=== PATIENT | male | born 1965 | race Caucasian/White ===

== ENCOUNTER 2016-11-03 20:07 | Observation (INO) ==
[2016-11-03] MEDS ORDERED: Ipratropium/Albuterol Neb 3 ML IH ONE (20:33)
[2016-11-03] MEDS ORDERED: methylPREDNISolone 125 MG/2 ML VIAL IV ONE (20:33)
--- NOTE | 2016-11-03 20:33 | Emergency Department Note ---
Disposition Clinical Impression: Chest pain Qualifiers: Chest pain type: unspecified Qualified Code(s): R07.9 - Chest pain, unspecified Dyspnea Qualifiers: Dyspnea type: shortness of breath Qualified Code(s): R06.02 - Shortness of breath COPD (chronic obstructive pulmonary disease) Qualifiers: COPD type: chronic bronchitis Chronic bronchitis type: simple Qualified Code(s) : J41.0 - Simple chronic bronchitis Disposition: Admitted As Inpatient Condition: Good Referrals: Unassigned,Provider [Non-Partnered Physician] - Chest Pain HPI - General Stated Complaint: JOSE Chest Pressure/ tightness Time Seen by Provider: 11/03/16 20:12 Source: patient Mode of arrival: ambulatory Limitations: no limitations Vital Signs Reviewed: Yes Nursing Notes Reviewed: Yes - History of Present Illness Pt complaint: chest pain Onset (ago): hour(s) (3) Duration: constant Onset: during rest Pain Location: substernal Severity scale (1-10): 8 Quality: tightness Pain Radiation: none Improves with: nothing Worsens with: nothing Associated symptoms: Reports: dyspnea Treatments prior to arrival chest pain: none - Related Data Home Medications Medication Instructions Recorded Confirmed Amlodipine Besylate 10 mg PO HS 06/28/16 06/28/16 Aspirin 81 mg PO HS 06/28/16 06/28/16 Budesonide/Formoterol 160/4.5 1 puff IH BIDR 06/28/16 06/28/16 [Symbicort 160/4.5] Cholecalciferol (D-3) [Vitamin D] 5,000 unit PO DAILY 06/28/16 06/28/16 Citalopram [CeleXA] 20 mg PO DAILY 06/28/16 06/28/16 Dapsone 150 mg PO DAILY 06/28/16 06/28/16 Dulaglutide [Trulicity] 0.75 mg SQ SA 06/28/16 06/28/16 Gabapentin [Neurontin] 400 mg PO TID 06/28/16 06/28/16 GlyBURIDE 5 mg PO HS 06/28/16 06/28/16 Levalbuterol [Xopenex INH] 2 puff IH Q6H PRN 06/28/16 06/28/16 Losartan/Hydrochlorothiazide 1 each PO DAILY 06/28/16 06/28/16 [Hyzaar 100-12.5 Tablet] Magnesium Oxide [Magnesium] 400 mg PO BID 06/28/16 06/28/16 Metformin HCl [Glucophage] 1,000 mg PO BID 06/28/16 06/28/16 Metoprolol XL (24 HR) Succ [Toprol 50 mg PO BID 06/28/16 06/28/16 Xl] Potassium Gluconate 500 mg PO DAILY 06/28/16 06/28/16 Testosterone [Androgel] 75 gm TD DAILY 06/28/16 06/28/16 Tiotropium [Spiriva] 18 mcg IH 0700 06/28/16 06/28/16 Topiramate [Topamax] 100 mg PO BID 06/28/16 06/28/16 Torsemide 10 mg PO DAILY 06/28/16 06/28/16 Previous Rx's Medication Instructions Recorded Atorvastatin [Lipitor] 80 mg PO HS #30 tablet 06/29/16 Clopidogrel [Plavix] 75 mg PO DAILY #30 tablet 06/29/16 Meloxicam [Mobic] 15 mg PO DAILY #0 06/29/16 Nicotine Patch [Nicoderm] 21 mg TD DAILY #44 patch.td24 06/29/16 Nitroglycerin 0.4 mg SL Q5MIN PRN #25 tab.subl 06/29/16 Allergies Allergy/AdvReac Type Severity Reaction Status Date / Time gluten AdvReac Diarrhea Verified 06/28/16 10:40 All systems ED: reviewed and negative except as stated. Constitutional: Denies: fever, chills, weakness Cardiovascular: Reports: chest pain Gastrointestinal: Denies: abdominal pain, nausea, vomiting Chest Pain PMH - Past Medical History Medical history: Reports: COPD, coronary artery disease, diabetes, hypertension , other Surgical history: Reports: other Psychiatric history: Reports: no psych history - Social History Smoking Status: Current every day smoker Alcohol use: Reports: none Drug use: Reports: none Course Vital Signs Temperature 98.3 F 11/03/16 20:38 Pulse Rate 68 11/03/16 20:38 Respiratory Rate 16 11/03/16 20:38 Blood Pressure 126/81 11/03/16 20:38 O2 Sat by Pulse Oximetry 97 11/03/16 20:38 Temperature 98.3 F 11/03/16 20:38 Pulse Rate 63 11/03/16 21:25 Respiratory Rate 16 11/03/16 21:25 Blood Pressure 106/68 11/03/16 21:25 O2 Sat by Pulse Oximetry 96 11/03/16 21:25 Oxygen Delivery Oxygen Delivery Room Air Chest Pain - Differential Diagnosis Likely: stable angina, atypical chest pain, costalchondritis, chest pain - Medical Records Medical records reviewed: Yes I reviewed the patient's medical records. - Lab Data Lab results reviewed: Yes I reviewed the patient's lab results. Result diagrams: 11/03/16 20:49 11/03/16 20:49 Lab Results 11/03/16 11/03/16 11/03/16 Range/Units 20:49 20:49 20:49 WBC 9.8 (4.3-11.1) K/mcL RBC 3.82 L (4.19-5.50) M/mcL Hgb 12.7 L (12.9-16.9) g/dL Hct 37.7 (37.5-50.1) % MCV 98.7 (83.0-100.0) fL MCH 33.2 (28.0-33.3) pg MCHC 33.7 (31.6-35.5) g/dL RDW 13.2 (11.5-14.5) % Plt Count 211 (140-400) K/mcL MPV 11.8 (9.4-12.4) fL Immature Gran % 0.2 (0-4) % Seg Neutrophils % 54.6 % Lymphocytes % 32.6 % Monocytes % 10.1 % Eosinophils % 2.0 % Basophils % 0.5 % Neutrophils # 5.3 (1.6-8.9) K/mcL Lymphocytes # 3.2 (0.6-4.6) K/mcL Monocytes # 1.0 (0.0-1.3) K/mcL Eosinophils # 0.2 (0.0-0.6) K/mcL Basophils # 0.1 (0.0-0.2) K/mcL PT 11.8 (9.4-12.1) Seconds INR 1.1 APTT 25.7 L (26.0-36.0) Seconds D-Dimer 240 (0-500) ng/mLFEU Sodium (136-145) mEq/L Potassium (3.5-4.5) mEq/L Chloride (98-109) mEq/L Carbon Dioxide (19-29) mEq/L BUN (8-26) mg/dL Creatinine (0.72-1.25) mg/dL Est GFR ( Amer) (> 60) Est GFR (Non-Af Amer) (> 60) BUN/Creatinine Ratio (6-26) Glucose (70-99) mg/dL Calculated Osmolality (280-300) Calcium (8.6-10.8) mg/dL Troponin I (0-0.03) ng/mL B-Natriuretic Peptide 14 (0-100) pg/mL 11/03/16 11/03/16 Range/Units 20:49 20:49 WBC (4.3-11.1) K/mcL RBC (4.19-5.50) M/mcL Hgb (12.9-16.9) g/dL Hct (37.5-50.1) % MCV (83.0-100.0) fL MCH (28.0-33.3) pg MCHC (31.6-35.5) g/dL RDW (11.5-14.5) % Plt Count (140-400) K/mcL MPV (9.4-12.4) fL Immature Gran % (0-4) % Seg Neutrophils % % Lymphocytes % % Monocytes % % Eosinophils % % Basophils % % Neutrophils # (1.6-8.9) K/mcL Lymphocytes # (0.6-4.6) K/mcL Monocytes # (0.0-1.3) K/mcL Eosinophils # (0.0-0.6) K/mcL Basophils # (0.0-0.2) K/mcL PT (9.4-12.1) Seconds INR APTT (26.0-36.0) Seconds D-Dimer (0-500) ng/mLFEU Sodium 139 (136-145) mEq/L Potassium 3.4 L (3.5-4.5) mEq/L Chloride 104 (98-109) mEq/L Carbon Dioxide 26 (19-29) mEq/L BUN 17 (8-26) mg/dL Creatinine 1.12 (0.72-1.25) mg/dL Est GFR ( Amer) > 60 (> 60) Est GFR (Non-Af Amer) > 60 (> 60) BUN/Creatinine Ratio 15 (6-26) Glucose 216 H (70-99) mg/dL Calculated Osmolality 296 (280-300) Calcium 9.0 (8.6-10.8) mg/dL Troponin I 0.00 (0-0.03) ng/mL B-Natriuretic Peptide (0-100) pg/mL - Radiology Data Radiology results reviewed: Yes I reviewed the patient's radiology results. - EKG Data EKG shows normal: sinus rhythm Rate: normal (68) Rhythm: NSR Interpretation: nonspecific ST-T wave changes
[2016-11-03 20:59] LABS: Basophils # 0.1 K/mcL (0.0-0.2); Basophils % 0.5 %; Eosinophils # 0.2 K/mcL (0.0-0.6); Hematocrit 37.7 % (37.5-50.1); Hemoglobin 12.7 g/dL (12.9-16.9); Immature Granulocytes % 0.2 % (0-4); Lymphocytes # 3.2 K/mcL (0.6-4.6); Lymphocytes % 32.6 %; Mean Corpuscular HGB Conc 33.7 g/dL (31.6-35.5); Mean Corpuscular Hemoglobin 33.2 pg (28.0-33.3); Mean Corpuscular Volume 98.7 fL (83.0-100.0); Mean Platelet Volume 11.8 fL (9.4-12.4); Monocytes % 10.1 %; Neutrophils # 5.3 K/mcL (1.6-8.9); Platelet Count 211 K/mcL (140-400); Red Blood Count 3.82 M/mcL (4.19-5.50); Red Cell Distribution Width 13.2 % (11.5-14.5); Segmented Neutrophils % 54.6 %
[2016-11-03 21:06] LABS: INR 1.1; Prothrombin Time 11.8 Seconds (9.4-12.1)
[2016-11-03 21:09] LABS: Activated Partial Thrombo Time 25.7 Seconds (26.0-36.0)
[2016-11-03 21:11] LABS: BUN/Creatinine Ratio 15 (6-26); Blood Urea Nitrogen 17 mg/dL (8-26); Carbon Dioxide 26 mEq/L (19-29); Chloride 104 mEq/L (98-109); Glucose 216 mg/dL (70-99); Osmolality,Calculated 296 (280-300); Potassium 3.4 mEq/L (3.5-4.5); Sodium 139 mEq/L (136-145); eGFR For African Americans > 60 (> 60); eGFR For Non-African Americans > 60 (> 60)
[2016-11-03] MEDS ORDERED: *HR* HYDROmorphone (PF) 1 MG/ML SYRINGE IV ONE (21:36)
[2016-11-03] MEDS ORDERED: Ondansetron 4 MG/2 ML VIAL IV ONE (21:36)
[2016-11-03] MEDS ORDERED: Aspirin 81 MG TAB.CHEW PO STA (21:44)
[2016-11-04] MEDS ORDERED: *HR* Morphine 2 MG/ML SYRINGE IVP PRN (02:55)
[2016-11-04] MEDS ORDERED: Ondansetron 4 MG/2 ML VIAL IVP PRN (02:55)
[2016-11-04] MEDS ORDERED: Acetaminophen 325 MG TABLET PO PRN (02:55)
[2016-11-04] MEDS ORDERED: Naloxone 0.4 MG/ML INJ IVP PRN (02:55)
[2016-11-04] MEDS ORDERED: D5% in Water 1,000 ML IVC PRN (02:59)
[2016-11-04] MEDS ORDERED: Dextrose Gel 15 GM PO PRN ×2 (02:59)
[2016-11-04] MEDS ORDERED: *HR* Dextrose 50 % in Water (Syg) 50 ML SYRINGE IVP PRN (02:59)
[2016-11-04] MEDS ORDERED: Nitroglycerin 0.4 MG TAB.SUBL SL PRN (03:00)
[2016-11-04] MEDS ORDERED: Aspirin 81 MG TAB.CHEW PO SCH ×2 (03:00→21:00)
--- NOTE | 2016-11-04 03:11 | Internal Med History&Physical ---
Date of Encounter: 11/04/16 Time of Encounter: 03:05 Assessment and Plan (1) Chest pain Current visit: Yes Status: Acute 1. Will cycle troponins and EKG's. 2. Keep npo. 3. Consult cardiology for possible further ischemic work-up. 4. D-Dimer negative; no clinical concern for PE. Qualifiers: Chest pain type: chest pain due to myocardial ischemia Qualified Code(s): I20.8 - Other forms of angina pectoris (2) Diabetes type 2, controlled Current visit: No Status: Chronic 1. Hold oral home meds. 2. Will place on SSI with Q6H glucose checks while npo. Qualifiers: Diabetes mellitus complication status: with circulatory complication Diabetes mellitus complication detail: with other circulatory complications Diabetes mellitus half-way insulin use: without half-way use Qualified Code( s): E11.59 - Type 2 diabetes mellitus with other circulatory complications (3) COPD (chronic obstructive pulmonary disease) Current visit: Yes Status: Chronic 1. No acute flare. 2. Continue home meds as appropriate. Qualifiers: COPD type: chronic bronchitis Chronic bronchitis type: simple Qualified Code(s): J41.0 - Simple chronic bronchitis (4) DVT prophylaxis Current visit: Yes Status: Acute 1. Heparin SQ. Internal Medicine - H&P: HPI Chief complaint: chest pain Admitted From: Emergency Dept Plans for Post Hospital Care: Home History of present illness: Mr. Rush is a 50 year old male who presents with 2-3 day history of substernal chest pain and pressure, which is very similar to his chest pain he experienced in June,. At that time, he underwent heart catheterization and underwent PCI and stent 2. He stated that the chest pain he experienced tonight was very similar to that. He denies any fevers, cough, or congestion. He did not take nitroglycerin. Rather, he came to the ER right away where he was seen and evaluated. His chest pain was relieved with Dilaudid as administered in the ER. Initial workup was negative. However, given his history of coronary disease and recent PCI/stent, he was admitted to the hospitalist service for further workup and care. Upon my assessment of the patient, he is chest pain-free. However, he is highly anxious and nervous that his chest pain could be secondary to angina and restenosis of his coronaries. He admits to becoming more short of breath recently. Activity level has decreased. Glucose control has been suboptimal. Of note, he also recently started wearing a CPAP mask at night for treatment of sleep apnea. He and his deny any chest pain or shortness of breath awaking him from sleep lately. Past Med Surg Social Fam HX - Past Medical History Attestation: Yes The following information was validated with the patient. Source: patient, old records reviewed Medical history: COPD, coronary artery disease, diabetes, hypertension Psychiatric history: no psych history - Past Surgical History Surgical History: angioplasty/stent - Social History Smoking Status: Former smoker Smokeless Tobacco Status: No Alcohol use: none Drug use: none Occupational status: disabled Current living situation: Home, With Family Activity Level: Independent ambulation Recent Out of Country Travel Within the Last 8 Weeks: No - Family History Father Living Status: Hx Family Respiratory Disorders: Yes (Lung Disease) Hx Family Endocrine Disorder: Yes (DM) Mother Living Status: Hx Family Cardiac Disorders: Yes Internal Medicine - H&P: Meds Amlodipine Besylate 10 mg PO HS 06/28/16 [History] Aspirin 81 mg PO HS 06/28/16 [History] Budesonide/Formoterol 160/4.5 [Symbicort 160/4.5] 1 puff IH BIDR 06/28/16 [ History] Cholecalciferol (D-3) [Vitamin D] 5,000 unit PO HS 06/28/16 [History] Citalopram [CeleXA] 20 mg PO DAILY 06/28/16 [History] Dapsone 100 mg PO DAILY 06/28/16 [History] Dulaglutide [Trulicity] 0.75 mg SQ SA 06/28/16 [History] Gabapentin [Neurontin] 600 mg PO TID 06/28/16 [History] GlyBURIDE 5 mg PO HS 06/28/16 [History] Losartan/Hydrochlorothiazide [Hyzaar 100-12.5 Tablet] 1 each PO DAILY 06/28/16 [ History] Magnesium Oxide [Magnesium] 400 mg PO BID 06/28/16 [History] Metformin HCl [Glucophage] 1,000 mg PO BID 06/28/16 [History] Metoprolol XL (24 HR) Succ [Toprol Xl] 50 mg PO BID 06/28/16 [History] Potassium Gluconate 550 mg PO DAILY 06/28/16 [History] Testosterone [Androgel] 75 gm TD 1400 06/28/16 [History] Tiotropium [Spiriva] 18 mcg IH 1200 06/28/16 [History] Topiramate [Topamax] 100 mg PO BID 06/28/16 [History] Torsemide 10 mg PO DAILY 06/28/16 [History] Atorvastatin [Lipitor] 80 mg PO HS #30 tablet 06/29/16 [Rx] Clopidogrel [Plavix] 75 mg PO DAILY #30 tablet 06/29/16 [Rx] Nitroglycerin 0.4 mg SL Q5MIN PRN #25 tab.subl 06/29/16 [Rx] Vitamin E (Dl,Tocopheryl Acet) [Vitamin E] 400 unit PO HS 11/03/16 [History] Dapsone 150 mg PO HS 11/04/16 [History] Isosorbide MONOnitrate (24 HR) [Imdur] 60 mg PO DAILY 11/04/16 [History] Valacyclovir HCl [Valtrex] 500 mg PO BID 11/04/16 [History] Allergies gluten Adverse Reaction (Verified 06/28/16 10:40) Diarrhea - Constitutional Constitutional: no chills, no fever(s), no night sweats - EENT Eyes: no blurry vision, no change in vision Ears: no ear pain, no tinnitus Nose, mouth and throat: no nasal congestion, no sinus pressure, no sore throat - Cardiovascular Cardiovascular ROS IM: chest pain, dyspnea, dyspnea on exertion, no diaphoresis , no irregular heart rhythm, no palpitations, no paroxysmal nocturnal dyspnea, no syncope - Respiratory Respiratory: wheezing (rare), no cough, no hemoptysis, no pain on inspiration, no chest congestion - Gastrointestinal Gastrointestinal: no abdominal pain, no diarrhea, no hematemesis, no hematochezia, no melena, no vomiting - Genitourinary Genitourinary ROS male: no dysuria, no hematuria - Musculoskeletal Musculoskeletal ROS IM: no arthralgias, no back pain - Integumentary Integumentary IM: rash (frequent breakouts of rash due to Gluten allergy) - Neurological Neurological ROS: no dizziness, no focal weakness, no frequent falls - Psychiatric Psychiatric: no anxiety, no depression - Endocrine Endocrine IM: no polydipsia, no polyuria - Allergic/Immunologic Allergic/Immunologic: GI upset with certain foods, no wheezing - Constitutional Vitals: Temp Pulse Resp BP Pulse Ox 98.1 F 62 16 113/69 94 11/03/16 23:14 11/03/16 23:14 11/03/16 23:14 11/03/16 23:14 11/03/16 23:14 General appearance: Present: cooperative, A&O X 3, pleasant, no acute distress, answers questions appropriately - Head Head exam: Present: atraumatic, normal inspection - Eye Eye exam: Present: EOMI, normal appearance, PERRL. Absent: scleral icterus Pupils: Present: normal accommodation - ENT ENT exam: Present: mucous membranes dry, normal exam, normal oropharynx - Neck Neck exam general surgery: Present: full ROM, supple. Absent: lymphadenopathy, tenderness - Respiratory Respiratory exam: Present: CTAB. Absent: chest wall tenderness, rales, respiratory distress, rhonchi, wheezes - Cardiovascular Cardiovascular exam: Present: RRR, +S1, +S2. Absent: diastolic murmur, JVD, systolic murmur - GI/Abdominal GI/Abdominal exam: Present: normal bowel sounds, soft. Absent: guarding, hepatomegaly, mass, rebound, splenomegaly, tenderness - Extremities Exam Extremities exam: Present: warm, radial pulses palpable and symetrical. Absent : calf tenderness, joint swelling, tenderness - Back Exam Back exam: Present: normal inspection. Absent: CVA tenderness (L), CVA tenderness (R) - Neurological Exam Neurological exam: Present: alert, oriented X3, no focal deficits, strengths equal and symetr throughout - Psychiatric Psychiatric exam: Present: normal affect, normal mood - Skin Skin exam: Present: dry, warm. Absent: rash Internal Med - H&P Results - Labs CBC & Chem 7: 11/03/16 20:49 11/03/16 20:49 - EKG Data -: EKG Interpreted by Myself EKG shows normal: sinus rhythm - EKG Data EKG comments: 11/04/16 03:20 NSR; no acute ST-T changes - Diagnostic Studies Chest x-ray Status: image reviewed by me (negative; lungs clear)
[2016-11-04 03:27] LABS: Basophils % 0.3 %; Eosinophils % 0.1 %; Hematocrit 35.7 % (37.5-50.1); Immature Granulocytes % 0.4 % (0-4); Lymphocytes # 1.1 K/mcL (0.6-4.6); Lymphocytes % 11.7 %; Mean Corpuscular HGB Conc 33.6 g/dL (31.6-35.5); Mean Corpuscular Hemoglobin 33.7 pg (28.0-33.3); Mean Corpuscular Volume 100.3 fL (83.0-100.0); Mean Platelet Volume 12.3 fL (9.4-12.4); Monocytes # 0.2 K/mcL (0.0-1.3); Monocytes % 1.8 %; Neutrophils # 7.9 K/mcL (1.6-8.9); Platelet Count 181 K/mcL (140-400); Red Blood Count 3.56 M/mcL (4.19-5.50); Red Cell Distribution Width 13.2 % (11.5-14.5); Segmented Neutrophils % 85.7 %
[2016-11-04] MEDS: valACYclovir 500 MG TABLET PO SCH ×2 (03:33→12:27)
[2016-11-04 03:38] LABS: Hemoglobin A1C 6.2 %
[2016-11-04 03:44] LABS: Alanine Aminotransferase 46 Units/L (0-55); Albumin 3.7 g/dL (3.5-5.0); Albumin/Globulin Ratio 1.3 (1.1-2.2); Alkaline Phosphatase 61 Units/L (38-126); Aspartate Amino Transferase 23 Units/L (5-34); BUN/Creatinine Ratio 15 (6-26); Bilirubin,Total 0.7 mg/dL (0.2-1.2); Blood Urea Nitrogen 20 mg/dL (8-26); Calcium 8.7 mg/dL (8.6-10.8); Carbon Dioxide 20 mEq/L (19-29); Chloride 103 mEq/L (98-109); Chol/HDL Ratio 4.9 (0-4.9); Cholesterol 93 mg/dL (< 200); Globulin 2.9 g/dL (2.4-3.5); Glucose 375 mg/dL (70-99); HDL Cholesterol 19 mg/dL (40-59); LDL Cholesterol,Calculated 48 mg/dL (0-99); Magnesium 1.9 mg/dL (1.6-2.6); Osmolality,Calculated 300 (280-300); Potassium 4.1 mEq/L (3.5-4.5); Sodium 136 mEq/L (136-145); Total Protein 6.6 g/dL (6.0-8.3); Triglycerides 129 mg/dL (< 150); eGFR For African Americans > 60 (> 60); eGFR For Non-African Americans 59 (> 60)
[2016-11-04] MEDS: *HR* HYDROmorphone (PF) 1 MG/ML SYRINGE IVP PRN ×2 (03:53→08:24)
[2016-11-04] MEDS: Insulin LISPRO 300 UNITS/3 ML VIAL SQ SCH ×2 (06:24→12:26)
[2016-11-04] MEDS: *HR* Heparin 5,000 UNIT/ML VIAL SQ SCH ×2 (06:24→15:30)
[2016-11-04] MEDS ORDERED: Torsemide 20 MG TABLET PO SCH (09:00)
[2016-11-04] MEDS ORDERED: Isosorbide MONOnitrate (24 HR) 60 MG TAB.ER.24H PO SCH (09:00)
[2016-11-04] MEDS ORDERED: Magnesium Oxide 400 MG TABLET PO SCH (09:00)
[2016-11-04] MEDS ORDERED: Topiramate 100 MG TABLET PO SCH (09:00)
[2016-11-04] MEDS ORDERED: Losartan/HCTZ 50-12.5 TABLET PO SCH (09:00)
[2016-11-04] MEDS ORDERED: Metoprolol XL (24 HR) Succ 50 MG TAB.ER.24H PO SCH (09:00)
[2016-11-04] MEDS ORDERED: Ketorolac 15 MG/ML VIAL IVP ONE (10:10)
--- NOTE | 2016-11-04 10:11 | Cardiology Consult Note ---
Date of Encounter: 11/04/16 Time of Encounter: 10:23 Assessment and Plan (1) Chest pain Current Visit: Yes Status: Acute Atypical chest pain. States it is similar to what he felt prior to previous PCI. Troponin negative x 3. EKG shows NSR with no acute ST changes. Telemetry review shows NSR no concerning arrhythmias. C/o constant pain. Currently having 3/10 chest discomfort. I discussed stress test vs maximizing medical management. Discussed with Dr. Diaz. Will give one dose of tordol now. Further recommendation to follow. Qualifiers: Chest pain type: chest pain due to myocardial ischemia Qualified Code(s): I20.8 - Other forms of angina pectoris (2) CAD (coronary artery disease) Current Visit: Yes Status: Acute CAD s/p PCI in June 2016. Cardiac catheterization 06/28/2016: Left Main 15% stenosis. LAD proximal 30% stenosis, mid 60% stenosis (LUCILA placed). OM1 99% stenosis (LUCILA placed). RCA proximal 40% stenosis, mid 40% stenosis, and distal 40% stenosis. EF 55%. Echocardiogram 03/15/2016: EF 60%. Normal LV size and function. Normal RV size and function. No evidence of pulmonary hypertension identified. No significant valvular dysfunction. Continue asa, plavix, statin, and bb. Continue imdur. Qualifiers: Coronary Disease-Associated Artery/Lesion type: [place] artery [place] vs. transplanted heart: [place] heart Associated angina: with stable angina Qualified Code(s): I25.118 - Atherosclerotic heart disease of [place] coronary artery with other forms of angina pectoris Discussion w patient/family: The assessment and plan as outlined above was discussed with the patient and/or family members who expressed understanding and agreement. All questions were answered. Thank you for involving us in the care of your patient. Please call with any questions. History of Present Illness Consult date: 11/04/16 Requesting physician: Nader Roa Consult reason: chest pain Chief complaint: Chest pain History of present illness: Kristofer is a 50-year-old with a history of CAD s/p PCI in June 2016, previous tobacco use, essential HTN, hyperlipidemia, diabetes, COPD on home O2, and obesity. C/o chest pain starting 2 days ago. He describes midsternal chest tightness with intermittent sharp pain associated with SOB and diaphoresis. Discomfort decreased with deep breaths. He also c/o difficulty swallowing and choking on his food. He reports he is fairly inactive and symptoms occurred at rest. Chest pain improved with dilauded denies taking NTG. He continues to have 3/10 chest tightness. Previous testing: Cardiac catheterization 06/28/2016: Left Main 15% stenosis. LAD proximal 30% stenosis, mid 60% stenosis (LUCILA placed). OM1 99% stenosis (LUCILA placed). RCA proximal 40% stenosis, mid 40% stenosis, and distal 40% stenosis. EF 55%. Echocardiogram 03/15/2016: EF 60%. Normal LV size and function. Normal RV size and function. No evidence of pulmonary hypertension identified. No significant valvular dysfunction. Stress 02/2016- negative for ischemia or infarct. Past Med Surg Social Fam HX - Past Medical History Medical history: COPD, coronary artery disease, diabetes, hyperlipidemia, hypertension Psychiatric history: no psych history - Past Surgical History Surgical History: angioplasty/stent - Social History Smoking Status: Former smoker Smokeless Tobacco Status: No Alcohol use: none Drug use: none - Family History Father Living Status: Hx Family Respiratory Disorders: Yes (Lung Disease) Hx Family Endocrine Disorder: Yes (DM) Mother Living Status: Hx Family Cardiac Disorders: Yes Medications and Allergies Amlodipine Besylate 10 mg PO HS 06/28/16 [History] Aspirin 81 mg PO HS 06/28/16 [History] Budesonide/Formoterol 160/4.5 [Symbicort 160/4.5] 1 puff IH BIDR 06/28/16 [ History] Cholecalciferol (D-3) [Vitamin D] 5,000 unit PO HS 06/28/16 [History] Citalopram [CeleXA] 20 mg PO DAILY 06/28/16 [History] Dapsone 100 mg PO DAILY 06/28/16 [History] Dulaglutide [Trulicity] 0.75 mg SQ SA 06/28/16 [History] Gabapentin [Neurontin] 600 mg PO TID 06/28/16 [History] GlyBURIDE 5 mg PO HS 06/28/16 [History] Losartan/Hydrochlorothiazide [Hyzaar 100-12.5 Tablet] 1 each PO DAILY 06/28/16 [ History] Magnesium Oxide [Magnesium] 400 mg PO BID 06/28/16 [History] Metformin HCl [Glucophage] 1,000 mg PO BID 06/28/16 [History] Metoprolol XL (24 HR) Succ [Toprol Xl] 50 mg PO BID 06/28/16 [History] Potassium Gluconate 550 mg PO DAILY 06/28/16 [History] Testosterone [Androgel] 75 gm TD 1400 06/28/16 [History] Tiotropium [Spiriva] 18 mcg IH 1200 06/28/16 [History] Topiramate [Topamax] 100 mg PO BID 06/28/16 [History] Torsemide 10 mg PO DAILY 06/28/16 [History] Atorvastatin [Lipitor] 80 mg PO HS #30 tablet 06/29/16 [Rx] Clopidogrel [Plavix] 75 mg PO DAILY #30 tablet 06/29/16 [Rx] Nitroglycerin 0.4 mg SL Q5MIN PRN #25 tab.subl 06/29/16 [Rx] Vitamin E (Dl,Tocopheryl Acet) [Vitamin E] 400 unit PO HS 11/03/16 [History] Dapsone 50 mg PO HS 11/04/16 [History] Isosorbide MONOnitrate (24 HR) [Imdur] 60 mg PO DAILY 11/04/16 [History] Valacyclovir HCl [Valtrex] 500 mg PO BID 11/04/16 [History] Allergies gluten Adverse Reaction (Verified 06/28/16 10:40) Diarrhea All Systems Review: A 10-system review of systems was performed and is negative for pertinent findings except as documented above in the HPI. Physical Examination Vital Signs, Last 4 Hours Temp Pulse Resp BP Pulse Ox 11/04/16 08:41 94 11/04/16 07:19 97.8 F 54 16 122/76 94 General: Conversant, No Apparent Distress HEENT: Atraumatic, Normocephaly, Mucus Membranes Moist Neck: No JVD, Normal carotid pulses Cardiac: Reg Rate and Rhythm, Normal S1 and S2, No Murmur Lungs: Normal Breath Sounds, No Wheeze, Rales, Rhonchi Neuro: Alert and responsive, No focal deficits noted Abdomen: Soft, Non-Tender Skin: No rashes noted on visualized skin Musculoskeletal: No Chest Wall Tenderness Extremities: No Clubbing, No Cyanosis, No Edema, Normal Pulses Results 11/04/16 03:16 11/04/16 03:16 Lab Results 04/05/1311/04/16 11/04/16 03:16 03:16 03:16 WBC 9.2 Hgb 12.0 L Hct 35.7 L Plt Count 181 Sodium 136 Potassium 4.1 Chloride 103 Carbon Dioxide 20 BUN 20 Creatinine 1.30 H Glucose 375 H Calcium 8.7 Magnesium 1.9 Total Bilirubin 0.7 AST 23 ALT 46 Alkaline Phosphatase 61 Troponin I 0.00 11/04/16 08:55 WBC Hgb Hct Plt Count Sodium Potassium Chloride Carbon Dioxide BUN Creatinine Glucose Calcium Magnesium Total Bilirubin AST ALT Alkaline Phosphatase Troponin I 0.00 - Imaging and Cardiology Stress Test: report reviewed Echo: report reviewed Cardiac cath: report reviewed - EKG Interpretation EKG results cardiology: personally reviewed (SR with no acute ST changes.), other (24 hour telemetry review shows NSR. No arrythmias seen.) Consult Discharge Plan - Plan Referrals: Antonio Fink MD [Primary Care Provider] -
[2016-11-04] MEDS: Budesonide/Formoterol 160/4.5 MDI IH SCH ×2 (10:44→10:45)
[2016-11-04] MEDS ORDERED: Tiotropium 18 MCG inhalation IH SCH (12:00)
[2016-11-04] MEDS: Gabapentin 300 MG CAPSULE PO SCH ×2 (12:27→14:39)
[2016-11-04] MEDS ORDERED: Ketorolac 30 MG/ML VIAL IVP SCH ×2 (15:45→16:28)
[2016-11-04] MEDS ORDERED: Insulin LISPRO 300 UNITS/3 ML VIAL SQ SCH ×2 (16:30→21:00)
[2016-11-04] MEDS ORDERED: Perflutren Lipid Microsphere 1.3 ML in 0.9 % Sodium Chloride 8.7 ML IVP ONE (16:55)
[2016-11-04] MEDS ORDERED: Ketorolac 30 MG/ML VIAL IVP PRN (17:07)
--- NOTE | 2016-11-04 17:55 | ECHO - Doppler Report ---
Echo with Imaging Enhancement Agent Name: Kristofer Rush Date of Study: 11/04/2016 Date: 1965 Ht: 70.0 in Medical Record#: [id number] Age: 50 Wt: 250.0 lb Gender: Male BSA: 2.29 Order #: [id number] Location: [facility] Room #: [id number] Reading Physician: Fabian Arias DO, [facility] [employer] Operator: Joelle Daine Ordering Physician: Jayden Franco CNP Primary Physician: Antonio Fink MD Indications: Chest pain Impressions: LVEF 55-60%. Normal LV chamber size, wall thickness and function. Normal right ventricular structure and function. No evidence of pulmonary hypertension. No significant valvular dysfunction. Left Ventricular Wall Motion: Rest Echo Findings All wall segments showed normal motion. Findings: Study Quality * Technically adequate exam. ECG Findings * Normal sinus rhythm. Left Ventricle * LVEF 55-60%. * Normal LV chamber size, wall thickness and function. Right Ventricle * Normal right ventricular structure and function. Left Atrium * Mildly dilated left atrium. Right Atrium * Normal right atrial size. Interatrial Septum * Interatrial septum not well evaluated. Aortic Valve * Aortic valve not well visualized. * No aortic regurgitation. * No aortic stenosis. Mitral Valve * Normal mitral valve structure and function. * No mitral stenosis. * No mitral regurgitation. Tricuspid Valve * Normal tricuspid valve structure and function. * Trace tricuspid regurgitation. * No evidence of pulmonary hypertension. Pulmonic Valve * Pulmonic valve not well visualized. Aorta * Normally sized aortic root. Pericardium * The pericardium appears normal. IVC * The IVC is not well evaluated. Pulmonary Artery * Pulmonary artery not well visualized. History Hypertension Diabetes Hypercholesteremia Family History of CAD History of CAD/PTCA 03/15/2016 a Previous Echo was performed. Contrast: Definity 1.3 ml in 8.7 ml of saline 2 ml. Measurements: BP: 90/ 54 2D Normal Values RVIDd: 4.50 cm <2.7 cm IVSd: 1.00 cm 0.6 - 1.0 cm LVIDd: 5.30 cm 3.7 - 5.6 cm LVPWd: .90 cm 0.6 - 1.1 cm LVIDs: 3.60 cm 1.5 - 3.6 cm AO: 2.60 cm < 4.0 cm LA: 4.30 cm 2.0 - 4.0cm %FS: 32.10 cm >25 % LA volume: 54 Mitral Valve Peak E:.89 m/sec Peak A:.70 m/sec E/A Ratio:1.3 Peak E' Lat Caesar:10 cm/s Peak E' Med Caesar:6.14 cm/s E/E' Lat Ratio:8.9 E/E' Med Ratio:14.5 Tricuspid Valve TV Regurg Peak Grad: 22.00mmHg TV Regurg Peak Caesar: 2.32m/sec Updated by Fabian Arias DO, FACDenzel, DANIEL, ELLA on 11/04/2016 5:51:27 PM electronically signed on 11/04/2016 5:51:59 PM with status of Final Wall Motion Phillips: 1=Normal, 2=Hypokinesis, 3=Akinesis, 4=Dyskinesis, 5=Aneurysmal, 6=Hyperkinetic, X=Not Visualized (Blank)=Missing
--- NOTE | 2016-11-04 18:27 | Electrocardiograph Report ---
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
--- NOTE | 2016-11-04 18:35 | Discharge Summary ---
Date of Encounter: 11/04/16 Time of Encounter: 17:45 - Discharge Diagnosis (1) Chest pain Priority: Primary Status: Acute Comments: At time of discharge, patient stated that his chest pain was controlled. Seem by cardiology who recommended sending him home with Toradol and twice a day baby aspirin. Echocardiogram unremarkable. Follow-up closely outpatient with cardiology. Qualifiers: Chest pain type: chest pain due to myocardial ischemia Qualified Code(s): I20.8 - Other forms of angina pectoris (2) Hypertension Priority: Secondary Status: Chronic Comments: Controlled with his home medications, follow up outpatient Qualifiers: Hypertension type: essential hypertension Qualified Code(s): I10 - Essential (primary) hypertension (3) Tobacco abuse Priority: Secondary Status: Resolved (4) Diabetes type 2, controlled Priority: Secondary Status: Chronic Comments: Controlled with an A1c of 6.2%. Follow-up outpatient. Qualifiers: Diabetes mellitus complication status: with circulatory complication Diabetes mellitus complication detail: with other circulatory complications Diabetes mellitus longterm insulin use: without ferry terminal agent use Qualified Code( s): E11.59 - Type 2 diabetes mellitus with other circulatory complications (5) COPD (chronic obstructive pulmonary disease) Priority: Secondary Status: Chronic Comments: No acute exacerbation. Patient denied shortness of breath above his normal day of discharge. No increased need for submental oxygenation. Qualifiers: COPD type: chronic bronchitis Chronic bronchitis type: simple Qualified Code(s): J41.0 - Simple chronic bronchitis (6) DVT prophylaxis Priority: Primary Status: Acute Comments: Subcutaneous heparin while admitted (7) CAD (coronary artery disease) Priority: Secondary Status: Chronic Qualifiers: Coronary Disease-Associated Artery/Lesion type: [place] artery [place] vs. transplanted heart: [place] heart Associated angina: with stable angina Qualified Code(s): I25.118 - Atherosclerotic heart disease of [place] coronary artery with other forms of angina pectoris (8) Chronic respiratory failure Priority: Secondary Status: Chronic Comments: On 2 L per nasal cannula continuously at home, no increased need Qualifiers: Respiratory failure complication: unspecified whether with hypoxia or hypercapnia Qualified Code(s): J96.10 - Chronic respiratory failure, unspecified whether with hypoxia or hypercapnia - Discharge Medications Prescriptions: Aspirin 81 mg PO BID #60 tab.chew Ketorolac [Toradol] 15 mg PO Q8H PRN #30 tablet PRN Reason: Pain Home Medications: Amlodipine Besylate 10 mg PO HS 12/02/16 [History] Budesonide/Formoterol 160/4.5 [Symbicort 160/4.5] 1 puff IH BIDR 06/28/16 [ History] Cholecalciferol (D-3) [Vitamin D] 5,000 unit PO HS 06/28/16 [History] Citalopram [CeleXA] 20 mg PO DAILY 06/28/16 [History] Dapsone 100 mg PO DAILY 06/28/16 [History] Dulaglutide [Trulicity] 0.75 mg SQ SA 06/28/16 [History] Gabapentin [Neurontin] 600 mg PO TID 06/28/16 [History] GlyBURIDE 5 mg PO HS 06/28/16 [History] Losartan/Hydrochlorothiazide [Hyzaar 100-12.5 Tablet] 1 each PO DAILY 06/28/16 [ History] Magnesium Oxide [Magnesium] 400 mg PO BID 06/28/16 [History] Metformin HCl [Glucophage] 1,000 mg PO BID 06/28/16 [History] Metoprolol XL (24 HR) Succ [Toprol Xl] 50 mg PO BID 06/28/16 [History] Potassium Gluconate 550 mg PO DAILY 06/28/16 [History] Testosterone [Androgel] 75 gm TD 1400 06/28/16 [History] Tiotropium [Spiriva] 18 mcg IH 1200 06/28/16 [History] Topiramate [Topamax] 100 mg PO BID 06/28/16 [History] Torsemide 10 mg PO DAILY 06/28/16 [History] Atorvastatin [Lipitor] 80 mg PO HS #30 tablet 06/29/16 [Rx] Clopidogrel [Plavix] 75 mg PO DAILY #30 tablet 06/29/16 [Rx] Nitroglycerin 0.4 mg SL Q5MIN PRN #25 tab.subl 06/29/16 [Rx] Vitamin E (Dl,Tocopheryl Acet) [Vitamin E] 400 unit PO HS 11/03/16 [History] Aspirin 81 mg PO BID #60 tab.chew 11/04/16 [Rx] Dapsone 50 mg PO HS 11/04/16 [History] Isosorbide MONOnitrate (24 HR) [Imdur] 60 mg PO DAILY 11/04/16 [History] Ketorolac [Toradol] 15 mg PO Q8H PRN #30 tablet 11/04/16 [Rx] Tramadol HCl [Ultram] 50 mg PO BID PRN 11/04/16 [History] Valacyclovir HCl [Valtrex] 500 mg PO BID 11/04/16 [History] Allergies/Adverse Reactions: Allergies gluten Adverse Reaction (Verified 06/28/16 10:40) Diarrhea Procedures/tests Complete & Pending: Procedures Performed prior 72 hours Category Date Time Status ECG 12 lead ECG [ECG] AM 0600 Y 11/04/16 06:00 Completed EV echocardiogram w enhance Routine Y 11/04/16 12:10 Completed Date of admission: 11/03/16 22:29 Primary care physician: Antonio Fink MD Consults: 11/04/16 02:59 Consult to Penal Officer [CONS] Routine Comment: 11/04/16 08:35 Consult to Cardiology [CONS] Routine Comment: Spoke to Fartun Franco Consulting Provider: Pawel Amaro Reason for Consult: Chest pain, recent stents in 07/12 Call Completed: No Discharging clinician: Sofia Morin Anticipated date of discharge: 11/04/16 (cleared by cards) - Patient Status Disposition: Home, Self-Care Condition: Good Functional capacity at discharge: independent ambulation Overall status at discharge: patient is back to baseline - Discharge Instructions Instructions: Chest Pain (DC), Chronic Obstructive Pulmonary Disease (DC) Follow Up With: Antonio Fink MD [Primary Care Provider] - 11/12/16 3:00 pm Fabian Arias DO [Partnered Physician] - Additional Instructions: Follow-up with primary care provider as scheduled, follow-up with cardiology within 1 week - Diet and Activity Activity: increase activity as tolerated Diet: diabetic diet, low fat, low cholesterol, low salt diet Hospital course: Mr. Rush is a 50 year old male with past medical history of COPD on 2 L per nasal cannula continuously at home, CAD status post stent, diabetes, hypertension, former tobacco abuse. Patient presented to the emergency room chief complaint 2-3 day history of substernal and located chest pain and pressure similar to his chest pain he experienced in June 2016 when he had a left heart catheter in which 2 stents were placed. He denied fevers, cough, congestion. He did not take his nitroglycerin at home but presented to the emergency department. His chest pain was relieved with Dilaudid in the emergency department. Workup in the emergency department unremarkable. Chest x -ray negative. Patient was admitted to the hospitalist service for further evaluation and management. Troponins negative 3. Cardiology was brought on board who proceeded with an echocardiogram. Echocardiogram unremarkable with ejection fraction of 55-60%. Patient's pain improved with Toradol suggestive of musculoskeletal etiology per cardiology. No indication for heart catheter during this visit. Cardiology recommended sending him home with Toradol as needed for pain and changing his baby aspirin to be twice a day. Patient denied chest pain at time of discharge. He was discharged home in stable condition with close outpatient follow-up highly recommended. He was encouraged to come back to the emergency department for any other bouts of chest pain. His and he were concerned on the day of discharge as the last time he was admitted his workup was negative and only proceed with a left heart catheter after they had insisted. They are concerned that this workup is negative and they still think that he needs a heart catheter but are amenable to close outpatient follow-up and returning to the ER should his chest pain reoccur. ITS Impressions Chest X-Ray 11/03/16 20:12 IMPRESSION: No acute cardiopulmonary abnormality. D/ / Caden Bernal MD / Caden Bernal MD Interpreting Provider: Caden Bernal MD Echocardiogram impressions with imaging enhancement agent: LVEF 55-60%. Normal LV chamber size, wall thickness and function. Normal right ventricular structure and function. No evidence of pulmonary hypertension. No significant valvular dysfunction. - Time Spent with Patient Total time spent providing and/or coordinating discharge services: - Constitutional Vitals: Temp Pulse Resp BP Pulse Ox 97.9 F 59 16 90/54 94 11/04/16 15:10 11/04/16 15:10 11/04/16 15:10 11/04/16 15:10 11/04/16 15:10 General appearance: Present: cooperative, A&O X 3, pleasant, no acute distress, answers questions appropriately - Head Head exam: Present: atraumatic, normocephalic - Eye Eye exam: Present: PERRL, conjuntiva pink, sclera anicteric Pupils: Present: PERRL - Neck Neck exam general surgery: Present: supple, trachea midline. Absent: lymphadenopathy - Respiratory Respiratory exam: Present: CTAB. Absent: accessory muscle use, rales, respiratory distress, rhonchi, wheezes - Cardiovascular Cardiovascular exam: Present: RRR, +S1, +S2. Absent: diastolic murmur, gallop, rubs, systolic murmur - GI/Abdominal GI/Abdominal exam: Present: normal bowel sounds, soft, no peritoneal signs. Absent: distended, tenderness - Extremities Exam Extremities exam: Present: warm, radial pulses palpable and symetrical. Absent : calf tenderness, cyanotic, pedal edema - Neurological Exam Neurological exam: Present: alert, CN II-XII intact, normal gait, oriented X3, no focal deficits, strengths equal and symetr throughout. Absent: pronater drift, facial droop, speech deficit - Skin Skin exam: Present: dry, intact, normal color, warm
--- NOTE | 2016-11-04 18:51 | Electrocardiograph Report ---
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
[2016-11-04] MEDS ORDERED: amLODIPine 5 MG TABLET PO SCH (21:00)
[2016-11-04] MEDS ORDERED: Cholecalciferol (D-3) 1,000 UNIT TABLET PO SCH (21:00)
[2016-11-05 11:39] VITALS: BP 90/54
== END 2016-11-04 19:00 | disposition home or self-care (01) ==
LOC: EMEROO 20:07 → 3BNU 20:07
PROVIDERS: ADMIT Pediatrics; ATTEND Nurse Practitioner Family